=== PATIENT | female | born 1950 | race African-American/Black ===

== ENCOUNTER 2019-09-19 08:21 | Observation (INO) | payer OTHER ==
[2019-09-19 08:29] VITALS: BMI 27.2
[2019-09-19] MEDS ORDERED: ACETAMINOPHEN 325 MG TABLET (FP) PO ONE (08:52)
[2019-09-19] MEDS ORDERED: MAG HYDROX/AL HYDROX/SIMETH 30 ML UNIT-DOSE CUP PO ONE (08:55)
[2019-09-19] MEDS ORDERED: LIDOCAINE VISCOUS 2% ORAL/TOP 20 ML UNIT-DOSE CUP MM ONE (08:55)
[2019-09-19] MEDS ORDERED: ACETAMINOPHEN 325 MG TABLET (FP) ONE (09:01)
[2019-09-19] MEDS ORDERED: LIDOCAINE VISCOUS 2% ORAL/TOP 20 ML UNIT-DOSE CUP ONE (09:01)
[2019-09-19] MEDS ORDERED: MAG HYDROX/AL HYDROX/SIMETH 30 ML UNIT-DOSE CUP ONE (09:01)
[2019-09-19 09:13] LABS: BASO % 1.3 % (0-2.0); HEMOGLOBIN 15.6 GM/dL (10.7-15.3); LYMPH % 53.6 % (8-40); MCH 28.1 pg (25.7-33.7); MCHC 32.5 g/dl (32.0-36.0); MEAN CELL VOLUME 86.5 fl (80-96); MEAN PLT VOLUME 8.8 fl (7.5-11.1); MONO % 8.6 % (3.8-10.2); NEUT % 31.5 % (42.8-82.8); PLATELET COUNT 219 K/MM3 (134-434); RBC 5.55 M/mm3 (3.60-5.2); WHITE BLOOD COUNT 4.4 K/mm3 (4.0-10.0)
[2019-09-19 09:22] LABS: INR 0.95 (0.83-1.09); PROTHROMBIN TIME (PATIENT) 11.2 SEC (9.7-13.0)
[2019-09-19 09:24] LABS: ACTIVATED PTT 30.5 SECONDS (25.2-36.5)
[2019-09-19 09:43] LABS: ALBUMIN 3.9 g/dl (3.4-5.0); BILIRUBIN,TOTAL 0.9 mg/dL (0.2-1); BLOOD UREA NITROGEN 14.9 mg/dL (7-18); CALCIUM 9.4 mg/dL (8.5-10.1); MAGNESIUM 2.4 mg/dL (1.8-2.4); POTASSIUM 4.2 mmol/L (3.5-5.1); TOT PROT 7.4 g/dl (6.4-8.2)
[2019-09-19] MEDS ORDERED: LISINOPRIL 10 MG TABLET PO ONE (10:23)
[2019-09-19] MEDS ORDERED: LISINOPRIL 5 MG TABLET ONE (10:29)
[2019-09-19] MEDS ORDERED: ACETAMINOPHEN 325 MG TABLET (FP) PO PRN (11:42)
[2019-09-19] MEDS ORDERED: ALBUTEROL SO4 HFA INHALER IH PRN (12:44)
[2019-09-19] MEDS ORDERED: ATORVASTATIN CA 20 MG TABLET (FP) PO SCH (22:00)
[2019-09-19] MEDS: NYSTATIN POWDER 100,000 UNITS/GM - 15 GM TOPICAL POWDER TP SCH (23:10)
[2019-09-20 07:34] LABS: HEMATOCRIT 45.5 % (32.4-45.2); HEMOGLOBIN 14.6 GM/dL (10.7-15.3); MCH 27.7 pg (25.7-33.7); MCHC 32.1 g/dl (32.0-36.0); MEAN CELL VOLUME 86.2 fl (80-96); MEAN PLT VOLUME 8.6 fl (7.5-11.1); PLATELET COUNT 197 K/MM3 (134-434); RBC 5.28 M/mm3 (3.60-5.2); WHITE BLOOD COUNT 4.8 K/mm3 (4.0-10.0)
[2019-09-20 08:07] LABS: BLOOD UREA NITROGEN 27.6 mg/dL (7-18); CALCIUM 9.2 mg/dL (8.5-10.1); CREATININE 1.2 mg/dL (0.55-1.3); POTASSIUM 4.5 mmol/L (3.5-5.1)
[2019-09-20] MEDS: LISINOPRIL 10 MG TABLET PO SCH (09:00)
[2019-09-20] MEDS: FUROSEMIDE 40 MG TABLET (FP) PO SCH (09:00)
[2019-09-20] MEDS: BUDESONIDE/FORMETEROL FUMARATE 80/4.5 mcg INHALER IH SCH ×2 (09:00→21:26)
[2019-09-20] MEDS ORDERED: PT OWN MED DRAWER 7, Y5N ONE ×2 (12:37→15:17)
[2019-09-20] MEDS: ENOXAPARIN NA (PORCINE) 40 MG/0.4 ML DISP.SYRIN SQ SCH (12:44)
[2019-09-20] MEDS: NYSTATIN POWDER 100,000 UNITS/GM - 15 GM TOPICAL POWDER TP SCH ×2 (12:44→21:26)
[2019-09-20] MEDS: PANTOPRAZOLE 40 MG TABLET PO SCH (12:45)
[2019-09-20] MEDS: FLUTICASONE PROP 0.05% 16 GM NASAL SPRAY NS SCH (13:32)
[2019-09-20] MEDS ORDERED: CLOPIDOGREL BISULFATE 300 MG TABLET PO ONE (14:31)
[2019-09-20] MEDS ORDERED: oxyCODONE HCL 5 MG TABLET PO PRN (15:24)
[2019-09-20] MEDS: ATORVASTATIN CA 80 MG TABLET (FP) PO SCH (21:26)
[2019-09-20] MEDS ORDERED: ACETAMINOPHEN/CAFFEINE/BUTALBITAL 1 TAB PO ONE (21:59)
[2019-09-21 07:03] LABS: BASO % 0.5 % (0-2.0); EOS % 2.4 % (0-4.5); HEMATOCRIT 45.2 % (32.4-45.2); HEMOGLOBIN 14.6 GM/dL (10.7-15.3); LYMPH % 40.7 % (8-40); MCH 27.7 pg (25.7-33.7); MCHC 32.3 g/dl (32.0-36.0); MEAN CELL VOLUME 85.6 fl (80-96); MEAN PLT VOLUME 8.8 fl (7.5-11.1); MONO % 10.3 % (3.8-10.2); NEUT % 46.1 % (42.8-82.8); PLATELET COUNT 220 K/MM3 (134-434); RBC 5.29 M/mm3 (3.60-5.2); RDW 14.2 % (11.6-15.6); WHITE BLOOD COUNT 5.6 K/mm3 (4.0-10.0)
[2019-09-21 07:20] LABS: ALBUMIN 3.6 g/dl (3.4-5.0); BILIRUBIN,TOTAL 1.1 mg/dL (0.2-1); CALCIUM 9.3 mg/dL (8.5-10.1); MAGNESIUM 2.5 mg/dL (1.8-2.4); TOT PROT 6.7 g/dl (6.4-8.2)
[2019-09-21] MEDS: PANTOPRAZOLE 40 MG TABLET PO SCH (09:42)
[2019-09-21] MEDS: BUDESONIDE/FORMETEROL FUMARATE 80/4.5 mcg INHALER IH SCH ×2 (09:42→21:31)
[2019-09-21] MEDS: CLOPIDOGREL BISULFATE 75 MG TABLET (FP) PO SCH (09:42)
[2019-09-21] MEDS: ASPIRIN 81 MG CHEWABLE TABLETS PO SCH (09:42)
[2019-09-21] MEDS: LISINOPRIL 10 MG TABLET PO SCH (09:42)
[2019-09-21] MEDS: FUROSEMIDE 40 MG TABLET (FP) PO SCH (09:42)
[2019-09-21] MEDS: ENOXAPARIN NA (PORCINE) 40 MG/0.4 ML DISP.SYRIN SQ SCH (09:42)
[2019-09-21] MEDS: NYSTATIN POWDER 100,000 UNITS/GM - 15 GM TOPICAL POWDER TP SCH ×2 (09:43→21:31)
[2019-09-21] MEDS: FLUTICASONE PROP 0.05% 16 GM NASAL SPRAY NS SCH (09:43)
[2019-09-21] MEDS: SPIRONOLACTONE 25 MG TABLET PO SCH (11:42)
[2019-09-21] MEDS: ACETAMINOPHEN/CAFFEINE/BUTALBITAL 1 TAB PO PRN ×2 (14:20→22:32)
[2019-09-21] MEDS: ATORVASTATIN CA 80 MG TABLET (FP) PO SCH (21:31)
[2019-09-22 07:57] LABS: BASO % 0.6 % (0-2.0); EOS % 2.6 % (0-4.5); HEMATOCRIT 42.6 % (32.4-45.2); HEMOGLOBIN 13.8 GM/dL (10.7-15.3); LYMPH % 50.1 % (8-40); MCH 27.7 pg (25.7-33.7); MCHC 32.3 g/dl (32.0-36.0); MEAN CELL VOLUME 85.7 fl (80-96); MEAN PLT VOLUME 8.4 fl (7.5-11.1); MONO % 9.2 % (3.8-10.2); NEUT % 37.5 % (42.8-82.8); PLATELET COUNT 197 K/MM3 (134-434); RBC 4.97 M/mm3 (3.60-5.2); RDW 13.9 % (11.6-15.6); WHITE BLOOD COUNT 4.4 K/mm3 (4.0-10.0)
[2019-09-22 07:59] LABS: ALBUMIN 3.5 g/dl (3.4-5.0); BLOOD UREA NITROGEN 24.8 mg/dL (7-18); CALCIUM 8.6 mg/dL (8.5-10.1); MAGNESIUM 2.4 mg/dL (1.8-2.4); POTASSIUM 4.2 mmol/L (3.5-5.1); TOT PROT 6.4 g/dl (6.4-8.2)
[2019-09-22] MEDS ORDERED: PT OWN MED DRAWER 7, Y5N ONE (09:22)
[2019-09-22] MEDS: FLUTICASONE PROP 0.05% 16 GM NASAL SPRAY NS SCH (09:28)
[2019-09-22] MEDS: SPIRONOLACTONE 25 MG TABLET PO SCH (09:28)
[2019-09-22] MEDS: ASPIRIN 81 MG CHEWABLE TABLETS PO SCH (09:28)
[2019-09-22] MEDS: PANTOPRAZOLE 40 MG TABLET PO SCH (09:29)
[2019-09-22] MEDS: CLOPIDOGREL BISULFATE 75 MG TABLET (FP) PO SCH (09:29)
[2019-09-22] MEDS: BUDESONIDE/FORMETEROL FUMARATE 80/4.5 mcg INHALER IH SCH (09:29)
[2019-09-22] MEDS: ENOXAPARIN NA (PORCINE) 40 MG/0.4 ML DISP.SYRIN SQ SCH (09:29)
[2019-09-22] MEDS: NYSTATIN POWDER 100,000 UNITS/GM - 15 GM TOPICAL POWDER TP SCH (09:29)
[2019-09-22] MEDS: ACETAMINOPHEN/CAFFEINE/BUTALBITAL 1 TAB PO PRN (09:29)
[2019-09-22 10:42] VITALS: BP 156/78; PULSE 82; TEMP 98.4
[2019-09-22] MEDS ORDERED: INSULIN SLIDING SCALE (NOVOLOG) 1 VIAL SQ ONE (12:19)
[2019-09-22] MEDS ORDERED: SACUBITRIL/VALSARTAN 49 MG-51 MG TABLET PO SCH (22:00)
== END 2019-09-22 11:20 | disposition short-term general hospital (02) ==
LOC: JER 08:21 → UNDOADMOB 10:02 → JERBED 10:02 → OBSVTOIN 11:42 → INTOOBSV 11:42 → J4S 20:45 → JERBED 20:45 → J4S 20:51
PROVIDERS: ADMIT Internal Medicine; ATTEND Nurse Practitioner Acute Care
PROC: 3E023GC Introduction of Other Therapeutic Substance into Muscle, Percutaneous Approach (ICD-10-PCS; principal; 2019-09-19)
DX: I25.9 Chronic ischemic heart disease, unspecified (principal); N18.9 Chronic kidney disease, unspecified; K76.9 Liver disease, unspecified; I13.11 Hypertensive heart and chronic kidney disease without heart failure, with stage 5 chronic kidney disease, or end stage renal disease; N18.6 End stage renal disease; J45.909 Unspecified asthma, uncomplicated; E78.5 Hyperlipidemia, unspecified; G89.29 Other chronic pain; M54.10 Radiculopathy, site unspecified; Z29.9 Encounter for prophylactic measures, unspecified; K21.9 Gastro-esophageal reflux disease without esophagitis; R01.1 Cardiac murmur, unspecified; R00.2 Palpitations; R12 Heartburn; Z88.8 Allergy status to other drugs, medicaments and biological substances
CPT/HCPCS: 36415; 71045-TC-FY; 78452-TC; 80048; 80053; 80061; 82550; 82553; 83721; 83735; 84443; 84484; 85025; 85027; 85610; 85730; 93005; 93010; 93017; 93306-TC; 96372; 99285-25; A9502; G0378; U0003